=== PATIENT | male | born 1950 | race Caucasian/White ===

== ENCOUNTER 2016-08-18 16:32 | Inpatient (IN) | payer MEDICARE ==
[~2016-08-18] VITALS: Ht 167.6 cm; Wt 80.1 kg
[~2016-08-18 16:32] MED LIST: CIP250 PO; MIRT15 PO
[2016-08-18] MEDS ORDERED: HISTORIAN PO (17:13)
[2016-08-18] MEDS ORDERED: ACETAMINOPHEN 500 MG TABLET PO ONE (17:45)
[2016-08-18] MEDS ORDERED: IBUPROFEN 600 MG TABLET PO ONE (17:45)
[2016-08-18 19:05] LABS: BASOPHILS # (AUTO) 0.03 K/uL (0.00-0.20); BASOPHILS % (AUTO) 0.4 % (0.0-2.0); EOSINOPHILS % (AUTO) 3.52 % (1.0-6.0); HEMATOCRIT 38.3 % (41-53); HEMOGLOBIN 12.6 g/dL (13.5-17.5); LYMPHOCYTES # (AUTO) 2.3 K/uL (1.0-4.8); LYMPHOCYTES % (AUTO) 27.1 % (22.0-44.0); MEAN CORPUSCULAR HEMOGLOBIN 29.1 pg (26.0-34.0); MEAN CORPUSCULAR VOLUME 88 fL (80-100); MONOCYTES # (AUTO) 0.7 K/uL (0.1-1.0); NEUTROPHILS # (AUTO) 5.2 K/uL (1.8-7.7); PLATELET COUNT (AUTO) 240 K/uL (150-450); RED BLOOD CELL COUNT(AUTO) 4.34 MIL/uL (4.50-5.90); RED CELL DISTRIBUTION WIDTH 14.2 % (11.5-14.5); WHITE BLOOD COUNT (AUTO) 8.6 K/uL (4.5-11.0)
[2016-08-18 19:14] LABS: ANION GAP 13 mmol/L (8-16); CALCIUM, TOTAL 8.8 mg/dL (8.8-10.5); CARBON DIOXIDE 23 mmol/L (22-29); CHLORIDE 107 mmol/L (98-107); CREATININE 0.93 mg/dL (0.60-1.30); GLOMERULAR FILTR. RATE CALC > 60 mL/min (>60); POTASSIUM 3.7 mmol/L (3.5-5.1); SODIUM SERUM 143 mmol/L (136-145); UREA NITROGEN, BLOOD 12 mg/dL (7-18)
[2016-08-18] MEDS ORDERED: VENL-193 PO (19:18)
[2016-08-18 19:20] LABS: ALANINE AMINOTRANSFERASE 24 U/L (12-78); ALBUMIN 3.1 g/dL (3.4-5.0); ASPARTATE AMINOTRANSFERASE 20 U/L (15-37); BILIRUBIN,TOTAL 0.2 mg/dL (0.1-1.0); TOTAL PROTEIN, SERUM 7.6 g/dL (6.4-8.2)
[2016-08-18 19:32] LABS: B-TYPE NATRIURETIC PEPTIDE 137 pg/mL (0-100)
[2016-08-18] MEDS ORDERED: MAGNESIUM HYDROXIDE SUSPENSION 30 ML UDCUP PO PRN (21:00)
[2016-08-18] MEDS ORDERED: ACETAMINOPHEN 325 MG TABLET PO PRN (21:00)
[2016-08-18] MEDS ORDERED: ALBUTEROL SULFATE 2.5 MG/0.5 ML NEB SOLUTION NEB PRN (21:00)
[2016-08-18] MEDS: DOCUSATE SODIUM 100 MG CAPSULE PO SCH (21:40)
[2016-08-18 22:59] VITALS: BP 131/69
[2016-08-18] MEDS: HEPARIN SODIUM,PORCINE 5,000 UNITS/ML VIAL SQ SCH (23:44)
[2016-08-19] MEDS ORDERED: PERMETHRIN 5% 60 GM CREAM TP ONE (04:00)
[2016-08-19 04:32] VITALS: BP 136/67
[2016-08-19 07:29] VITALS: BP 140/60
[2016-08-19] MEDS: MULTIVITAMINS WITH MINERALS, THERAPEUTIC TABLET PO SCH (10:05)
[2016-08-19] MEDS: HEPARIN SODIUM,PORCINE 5,000 UNITS/ML VIAL SQ SCH ×3 (10:05→23:06)
[2016-08-19] MEDS: DOCUSATE SODIUM 100 MG CAPSULE PO SCH ×2 (10:05→21:07)
[2016-08-19] MEDS: PANTOPRAZOLE SODIUM 40 MG DR TABLET PO SCH (10:06)
[2016-08-19] MEDS: ASPIRIN 81 MG CHEWABLE TABLET PO SCH (10:06)
[2016-08-19 11:52] VITALS: BP 133/59
[2016-08-19 16:06] VITALS: BP 139/87
[2016-08-19 19:34] VITALS: BP 124/81
[2016-08-20] VITALS (7 sets, daily range): BP systolic 110–128; BP diastolic 61–80
[2016-08-20] MEDS: HEPARIN SODIUM,PORCINE 5,000 UNITS/ML VIAL SQ SCH ×2 (08:16→16:38)
[2016-08-20] MEDS: ASPIRIN 81 MG CHEWABLE TABLET PO SCH (08:17)
[2016-08-20] MEDS: DOCUSATE SODIUM 100 MG CAPSULE PO SCH ×2 (08:17→20:51)
[2016-08-20] MEDS: MULTIVITAMINS WITH MINERALS, THERAPEUTIC TABLET PO SCH (08:17)
[2016-08-20] MEDS: PANTOPRAZOLE SODIUM 40 MG DR TABLET PO SCH (08:17)
[2016-08-21 00:18] VITALS: BP 121/60
[2016-08-21 04:30] VITALS: BP 116/69
[2016-08-21 07:55] VITALS: BP 110/58
[2016-08-21] MEDS: PANTOPRAZOLE SODIUM 40 MG DR TABLET PO SCH (09:00)
[2016-08-21] MEDS: ASPIRIN 81 MG CHEWABLE TABLET PO SCH (09:00)
[2016-08-21] MEDS: MULTIVITAMINS WITH MINERALS, THERAPEUTIC TABLET PO SCH (09:00)
[2016-08-21] MEDS: DOCUSATE SODIUM 100 MG CAPSULE PO SCH (09:00)
[2016-08-21] MEDS ORDERED: CITALOPRAM HYDROBROMIDE 20 MG TABLET PO SCH (09:00)
[2016-08-21 11:41] VITALS: BP 98/70
== END 2016-08-21 17:35 | DRG 640 ==
LOC: EMS 16:33 → 5S 21:50
PROVIDERS: ADMIT Internal Medicine; ATTEND Internal Medicine
DX: R62.7 Adult failure to thrive (principal); G93.49 Other encephalopathy; F10.10 Alcohol abuse, uncomplicated; F03.90 Unspecified dementia, unspecified severity, without behavioral disturbance, psychotic disturbance, mood disturbance, and anxiety; F17.210 Nicotine dependence, cigarettes, uncomplicated; Z79.2 Long term (current) use of antibiotics; Z79.899 Other long term (current) drug therapy
CPT/HCPCS: 70450; 87081; 93005; 97162; 99285; G0480; J1644

== ENCOUNTER 2016-08-21 18:00 | Inpatient (IN) | payer MEDICARE ==
[~2016-08-21 18:00] MED LIST changes: +HISTORIAN PO; +VENL-193 PO
[2016-08-21 19:09] VITALS: BP 115/67
[2016-08-21] MEDS ORDERED: ZOLPIDEM TARTRATE 10 MG TABLET PO PRN (19:15)
[2016-08-21] MEDS ORDERED: HALOPERIDOL 5 MG TABLET PO PRN (19:15)
[2016-08-21] MEDS ORDERED: LORazepam 2 MG TABLET PO PRN (19:15)
[2016-08-21] MEDS: MIRTAZAPINE 15 MG TABLET PO SCH (20:42)
[2016-08-22 08:01] VITALS: BP 126/79
[2016-08-22] MEDS: ASPIRIN 81 MG CHEWABLE TABLET PO SCH (09:29)
[2016-08-22] MEDS: PANTOPRAZOLE SODIUM 40 MG DR TABLET PO SCH (09:30)
[2016-08-22] MEDS: VENLAFAXINE HCL 150 MG ER CAPSULE PO SCH (09:30)
[2016-08-22] MEDS: MULTIVITAMINS WITH MINERALS, THERAPEUTIC TABLET PO SCH (09:30)
[2016-08-22] MEDS: DOCUSATE SODIUM 100 MG CAPSULE PO SCH ×2 (09:30→16:17)
[2016-08-22 16:50] VITALS: BP 117/71
[2016-08-22] MEDS ORDERED: ACETAMINOPHEN 325 MG TABLET PO PRN (20:30)
[2016-08-22] MEDS ORDERED: IBUPROFEN 400 MG TABLET PO PRN (20:30)
[2016-08-22] MEDS: MIRTAZAPINE 15 MG TABLET PO SCH (20:41)
[2016-08-23 06:33] LABS: BASOPHILS % (AUTO) 0.3 % (0.0-2.0); EOSINOPHILS % (AUTO) 4.5 % (1.0-6.0); HEMATOCRIT 39.8 % (41-53); HEMOGLOBIN 12.9 g/dL (13.5-17.5); LYMPHOCYTES # (AUTO) 2.9 K/uL (1.0-4.8); LYMPHOCYTES % (AUTO) 34.3 % (22.0-44.0); MEAN CORPUSCULAR HEMOGLOBIN 29.2 pg (26.0-34.0); MEAN CORPUSCULAR HGB CONC 32.4 G/dL (31.0-37.0); MEAN CORPUSCULAR VOLUME 90 fL (80-100); MONOCYTES # (AUTO) 0.7 K/uL (0.1-1.0); MONOCYTES % (AUTO) 7.7 % (2.0-9.0); NEUTROPHILS # (AUTO) 4.6 K/uL (1.8-7.7); NEUTROPHILS % (AUTO) 53.2 % (40.0-70.0); PLATELET COUNT (AUTO) 236 K/uL (150-450); RED BLOOD CELL COUNT(AUTO) 4.42 MIL/uL (4.50-5.90); RED CELL DISTRIBUTION WIDTH 14.4 % (11.5-14.5); WHITE BLOOD COUNT (AUTO) 8.6 K/uL (4.5-11.0)
[2016-08-23 07:09] LABS: CHOL/HDL RATIO 5.5 (4.2-7.3)
[2016-08-23 07:37] LABS: HEMOGLOBIN A1C 5.3 % (4.5-6.2)
[2016-08-23 08:01] VITALS: BP 133/87
[2016-08-23] MEDS: VENLAFAXINE HCL 150 MG ER CAPSULE PO SCH (08:33)
[2016-08-23] MEDS: ASPIRIN 81 MG CHEWABLE TABLET PO SCH (08:33)
[2016-08-23] MEDS: MULTIVITAMINS WITH MINERALS, THERAPEUTIC TABLET PO SCH (08:33)
[2016-08-23] MEDS: PANTOPRAZOLE SODIUM 40 MG DR TABLET PO SCH (08:33)
[2016-08-23] MEDS: DOCUSATE SODIUM 100 MG CAPSULE PO SCH ×2 (08:33→16:04)
[2016-08-23 16:16] VITALS: BP 106/59
[2016-08-23] MEDS: MIRTAZAPINE 15 MG TABLET PO SCH (20:05)
[2016-08-23 21:57] LABS: ALANINE AMINOTRANSFERASE 60 U/L (12-78); ALBUMIN 3.4 g/dL (3.4-5.0); ANION GAP 12 mmol/L (8-16); ASPARTATE AMINOTRANSFERASE 55 U/L (15-37); BILIRUBIN,TOTAL 0.2 mg/dL (0.1-1.0); CALCIUM, TOTAL 8.8 mg/dL (8.8-10.5); CARBON DIOXIDE 26 mmol/L (22-29); CHLORIDE 105 mmol/L (98-107); CREATININE 1.03 mg/dL (0.60-1.30); GLOMERULAR FILTR. RATE CALC > 60 mL/min (>60); POTASSIUM 4.1 mmol/L (3.5-5.1); SODIUM SERUM 143 mmol/L (136-145); TOTAL PROTEIN, SERUM 7.1 g/dL (6.4-8.2); UREA NITROGEN, BLOOD 22 mg/dL (7-18)
[2016-08-24] MEDS: FERROUS SULFATE 325 MG EC TABLET PO SCH ×2 (07:29→17:56)
[2016-08-24 08:01] VITALS: BP 138/72
[2016-08-24] MEDS: VENLAFAXINE HCL 150 MG ER CAPSULE PO SCH (08:31)
[2016-08-24] MEDS: DOCUSATE SODIUM 100 MG CAPSULE PO SCH ×2 (08:31→17:56)
[2016-08-24] MEDS: ASPIRIN 81 MG CHEWABLE TABLET PO SCH (08:31)
[2016-08-24] MEDS: MULTIVITAMINS WITH MINERALS, THERAPEUTIC TABLET PO SCH (08:32)
[2016-08-24] MEDS: PANTOPRAZOLE SODIUM 40 MG DR TABLET PO SCH (08:32)
[2016-08-24 19:03] VITALS: BP 101/62
[2016-08-24] MEDS: MIRTAZAPINE 15 MG TABLET PO SCH (20:30)
[2016-08-25] MEDS: FERROUS SULFATE 325 MG EC TABLET PO SCH ×2 (06:44→16:30)
[2016-08-25 08:36] VITALS: BP 125/73
[2016-08-25] MEDS: MULTIVITAMINS WITH MINERALS, THERAPEUTIC TABLET PO SCH (09:24)
[2016-08-25] MEDS: ASPIRIN 81 MG CHEWABLE TABLET PO SCH (09:25)
[2016-08-25] MEDS: VENLAFAXINE HCL 150 MG ER CAPSULE PO SCH (09:25)
[2016-08-25] MEDS: DOCUSATE SODIUM 100 MG CAPSULE PO SCH ×2 (09:25→16:29)
[2016-08-25] MEDS: PANTOPRAZOLE SODIUM 40 MG DR TABLET PO SCH (09:31)
[2016-08-25 17:12] VITALS: BP 108/64
[2016-08-25] MEDS: MIRTAZAPINE 15 MG TABLET PO SCH (20:30)
[2016-08-26] MEDS: FERROUS SULFATE 325 MG EC TABLET PO SCH ×2 (06:38→16:48)
[2016-08-26] MEDS: DOCUSATE SODIUM 100 MG CAPSULE PO SCH ×2 (08:09→16:48)
[2016-08-26] MEDS: MULTIVITAMINS WITH MINERALS, THERAPEUTIC TABLET PO SCH (08:09)
[2016-08-26] MEDS: ASPIRIN 81 MG CHEWABLE TABLET PO SCH (08:09)
[2016-08-26] MEDS: VENLAFAXINE HCL 150 MG ER CAPSULE PO SCH (08:09)
[2016-08-26] MEDS: PANTOPRAZOLE SODIUM 40 MG DR TABLET PO SCH (08:09)
[2016-08-26 08:18] VITALS: BP 129/77
[2016-08-26 16:22] VITALS: BP 115/82
[2016-08-26] MEDS: MIRTAZAPINE 15 MG TABLET PO SCH (20:42)
[2016-08-27 03:30] VITALS: BP 106/76
[2016-08-27] MEDS: FERROUS SULFATE 325 MG EC TABLET PO SCH ×2 (07:14→16:39)
[2016-08-27 08:17] VITALS: BP 133/96
[2016-08-27] MEDS: MULTIVITAMINS WITH MINERALS, THERAPEUTIC TABLET PO SCH (08:21)
[2016-08-27] MEDS: DOCUSATE SODIUM 100 MG CAPSULE PO SCH ×2 (08:21→16:39)
[2016-08-27] MEDS: PANTOPRAZOLE SODIUM 40 MG DR TABLET PO SCH (08:21)
[2016-08-27] MEDS: ASPIRIN 81 MG CHEWABLE TABLET PO SCH (08:21)
[2016-08-27] MEDS: VENLAFAXINE HCL 150 MG ER CAPSULE PO SCH (08:21)
[2016-08-27 18:18] VITALS: BP 108/72
[2016-08-27] MEDS: MIRTAZAPINE 15 MG TABLET PO SCH (20:40)
[2016-08-28 04:31] VITALS: BP 145/84
[2016-08-28] MEDS: FERROUS SULFATE 325 MG EC TABLET PO SCH ×2 (06:50→16:12)
[2016-08-28 08:18] VITALS: BP 124/75
[2016-08-28] MEDS: VENLAFAXINE HCL 150 MG ER CAPSULE PO SCH (08:22)
[2016-08-28] MEDS: PANTOPRAZOLE SODIUM 40 MG DR TABLET PO SCH (08:23)
[2016-08-28] MEDS: DOCUSATE SODIUM 100 MG CAPSULE PO SCH ×2 (08:23→16:12)
[2016-08-28] MEDS: ASPIRIN 81 MG CHEWABLE TABLET PO SCH (08:23)
[2016-08-28] MEDS: MULTIVITAMINS WITH MINERALS, THERAPEUTIC TABLET PO SCH (08:23)
[2016-08-28 17:15] VITALS: BP 137/78
[2016-08-28] MEDS: MIRTAZAPINE 15 MG TABLET PO SCH (21:06)
[2016-08-29 00:04] VITALS: BP 126/89
[2016-08-29] MEDS: FERROUS SULFATE 325 MG EC TABLET PO SCH ×2 (06:40→17:18)
[2016-08-29 08:30] VITALS: BP 112/77
[2016-08-29] MEDS: ASPIRIN 81 MG CHEWABLE TABLET PO SCH (09:00)
[2016-08-29] MEDS: MULTIVITAMINS WITH MINERALS, THERAPEUTIC TABLET PO SCH (09:00)
[2016-08-29] MEDS: VENLAFAXINE HCL 150 MG ER CAPSULE PO SCH (09:00)
[2016-08-29] MEDS: PANTOPRAZOLE SODIUM 40 MG DR TABLET PO SCH (09:00)
[2016-08-29] MEDS: DOCUSATE SODIUM 100 MG CAPSULE PO SCH ×2 (09:00→17:18)
[2016-08-29 16:35] VITALS: BP 127/72
[2016-08-29] MEDS: MIRTAZAPINE 15 MG TABLET PO SCH (21:01)
[2016-08-30] MEDS: FERROUS SULFATE 325 MG EC TABLET PO SCH ×2 (07:02→16:45)
[2016-08-30 08:30] VITALS: BP 122/73
[2016-08-30] MEDS: ASPIRIN 81 MG CHEWABLE TABLET PO SCH (08:46)
[2016-08-30] MEDS: DOCUSATE SODIUM 100 MG CAPSULE PO SCH ×2 (08:46→16:45)
[2016-08-30] MEDS: PANTOPRAZOLE SODIUM 40 MG DR TABLET PO SCH (08:47)
[2016-08-30] MEDS: VENLAFAXINE HCL 150 MG ER CAPSULE PO SCH (08:47)
[2016-08-30] MEDS: MULTIVITAMINS WITH MINERALS, THERAPEUTIC TABLET PO SCH (08:47)
[2016-08-30 17:23] VITALS: BP 99/64
[2016-08-30] MEDS: MIRTAZAPINE 15 MG TABLET PO SCH (20:38)
[2016-08-31] MEDS: FERROUS SULFATE 325 MG EC TABLET PO SCH ×2 (06:43→17:10)
[2016-08-31] MEDS: MULTIVITAMINS WITH MINERALS, THERAPEUTIC TABLET PO SCH (08:17)
[2016-08-31] MEDS: VENLAFAXINE HCL 150 MG ER CAPSULE PO SCH (08:17)
[2016-08-31] MEDS: DOCUSATE SODIUM 100 MG CAPSULE PO SCH ×2 (08:17→17:10)
[2016-08-31] MEDS: PANTOPRAZOLE SODIUM 40 MG DR TABLET PO SCH (08:17)
[2016-08-31] MEDS: ASPIRIN 81 MG CHEWABLE TABLET PO SCH (08:17)
[2016-08-31 08:30] VITALS: BP 112/77
[2016-08-31 16:45] VITALS: BP 114/71
[2016-08-31] MEDS: MIRTAZAPINE 15 MG TABLET PO SCH (20:39)
[2016-09-01] MEDS: FERROUS SULFATE 325 MG EC TABLET PO SCH (06:39)
[2016-09-01 08:44] VITALS: BP 130/66
[2016-09-01] MEDS: ASPIRIN 81 MG CHEWABLE TABLET PO SCH (09:12)
[2016-09-01] MEDS: PANTOPRAZOLE SODIUM 40 MG DR TABLET PO SCH (09:13)
[2016-09-01] MEDS: MULTIVITAMINS WITH MINERALS, THERAPEUTIC TABLET PO SCH (09:13)
[2016-09-01] MEDS: DOCUSATE SODIUM 100 MG CAPSULE PO SCH (09:13)
[2016-09-01] MEDS: VENLAFAXINE HCL 150 MG ER CAPSULE PO SCH (09:13)
[2016-09-01] MEDS ORDERED: DSS100 PO (11:51)
[2016-09-01] MEDS ORDERED: ASPI81 PO (11:51)
[2016-09-01] MEDS ORDERED: FERR-89 PO (11:51)
[2016-09-01] MEDS ORDERED: PANT40TA25 PO (11:52)
[2016-09-01] MEDS ORDERED: MV-M1TAB2 PO (11:52)
== END 2016-09-01 13:30 | DRG 885 ==
LOC: 3EX 18:00
PROVIDERS: ADMIT Psychiatry & Neurology Psychiatry; ATTEND Psychiatry & Neurology Psychiatry
DX: F32.2 Major depressive disorder, single episode, severe without psychotic features (principal); D64.9 Anemia, unspecified; E78.5 Hyperlipidemia, unspecified; F03.90 Unspecified dementia, unspecified severity, without behavioral disturbance, psychotic disturbance, mood disturbance, and anxiety; F10.229 Alcohol dependence with intoxication, unspecified; F17.200 Nicotine dependence, unspecified, uncomplicated; F09 Unspecified mental disorder due to known physiological condition; R62.7 Adult failure to thrive; F22 Delusional disorders; Z59.0 Homelessness; Z79.899 Other long term (current) drug therapy
CPT/HCPCS: 83036; 84443; 87081